=== PATIENT | male | born 1950 | race Caucasian/White ===

== ENCOUNTER 2021-11-06 21:02 | Observation (INO) | payer BC, MEDICARE ==
[~2021-11-06] VITALS: Ht 169 cm; Wt 98.4 kg
[2021-11-06] MEDS ORDERED: LOPERAMIDE 2 MG (IMODIUM) TABLET PO PRN (21:15)
[2021-11-06] MEDS ORDERED: BISACODYL 10 MG SUPP (DULCOLAX) PR PRN (21:15)
[2021-11-06] MEDS ORDERED: ENOXAPARIN 40 MG/0.4 ML (LOVENOX) SYR SC SCH (21:15)
[2021-11-06] MEDS ORDERED: HYDROcodone/APAP 5 MG/325 MG (LORTAB) TAB PO PRN (21:15)
[2021-11-06] MEDS ORDERED: ACETAMINOPHEN 325 MG TABLET PO PRN (21:15)
[2021-11-06] MEDS ORDERED: ONDANSETRON 4 MG/2 ML (SDV) Z0FRAN IV PRN (21:15)
[2021-11-06] MEDS ORDERED: NALOXONE 0.4 MG/ML 1 ML (NARCAN) VIAL IV PRN (21:15)
[2021-11-06] MEDS ORDERED: ALPRAZolam 0.25 MG (XANAX) TAB PO PRN (21:15)
[2021-11-06] MEDS ORDERED: CALCIUM CARBONATE 500 MG (TUMS) TAB.CHEW PO PRN (21:15)
[2021-11-06] MEDS ORDERED: diphenhydrAMINE 25 MG TAB (BENADRYL) PO PRN (21:15)
[2021-11-06] MEDS ORDERED: ONDANSETRON 4 MG (ZOFRAN) ORAL DISSOLVE TAB PO PRN (21:15)
[2021-11-06] MEDS ORDERED: ANTACID SUSP 30 ML UDC (MYLANTA) PO PRN (21:15)
[2021-11-06] MEDS ORDERED: polyethylene glycoL POWDER 17 GM (MIRALAX) PACK PO PRN (21:15)
[2021-11-06] MEDS ORDERED: NITROGLYCERIN 0.4 MG SL TABS BTL 25'S SL PRN (21:15)
[2021-11-06] MEDS ORDERED: MELATONIN 3 MG TABLET PO PRN (21:15)
[2021-11-06] MEDS ORDERED: MILK OF MAGNESIA 400 MG/5 ML 30 ML UDC PO PRN (21:15)
[2021-11-06] MEDS ORDERED: diphenhydrAMINE 50 MG/ML INJ (BENADRYL) IVP PRN (21:15)
[2021-11-06] MEDS ORDERED: morphine INJ 4 MG/ML 1 ML (VIAL/SYRINGE) IV PRN (21:15)
[2021-11-06] MEDS ORDERED: LACTULOSE SYRUP 10GM/15ML (ENULOSE) 30ML UDC PO PRN (21:15)
[2021-11-07] MEDS: inSUlin ASPART (NovoLOG) 1 UNIT/0.01 ML (CHARGE PER UNIT) SC SCH ×3 (06:00→17:40)
[2021-11-07] MEDS ORDERED: ASPIRIN E.C. 81 MG (ECOTRIN) TAB PO SCH (09:00)
[2021-11-07] MEDS ORDERED: SENNOSIDES 8.6 MG (SENOKOT) TAB PO SCH (09:00)
[2021-11-07] MEDS ORDERED: DOCUSATE SODIUM 100 MG (COLACE) CAP PO SCH (09:00)
[2021-11-07] MEDS ORDERED: meTOprolol TARTRATE 25 MG (LOPRESSOR) TABLET PO SCH (09:00)
[2021-11-07 10:00] VITALS: BP 143/82
[2021-11-07] MEDS: NS IV 1000 ML 1,000 ML IV SCH ×2 (10:20→12:40)
[2021-11-07 10:38] LABS: BASOPHILS # (AUTO) 0.1 10^3/uL (0.0-0.1); BASOPHILS % (AUTO) 1 % (0-10); EOSINOPHILS # (AUTO) 0.2 10^3/uL (0.0-0.3); EOSINOPHILS % (AUTO) 2 % (0-10); HEMATOCRIT 45 % (40-54); HEMOGLOBIN 14.6 g/dL (13.3-17.7); LYMPHOCYTES # (AUTO) 1.3 10^3/uL (1.0-4.0); LYMPHOCYTES % (AUTO) 16 % (12-44); MEAN CORPUSCULAR HEMOGLOBIN 27 pg (25-34); MEAN CORPUSCULAR HGB CONC 32 g/dL (32-36); MEAN CORPUSCULAR VOLUME 84 fL (80-99); MEAN PLATELET VOLUME 8.9 fL (9.0-12.2); MONOCYTES # (AUTO) 0.4 10^3/uL (0.0-1.0); MONOCYTES % (AUTO) 5 % (0-12); NEUTROPHILS # (AUTO) 6.2 10^3/uL (1.8-7.8); NEUTROPHILS % (AUTO) 76 % (42-75); PLATELET COUNT 307 10^3/uL (130-400); WHITE BLOOD COUNT 8.1 10^3/uL (4.3-11.0)
--- NOTE | 2021-11-07 11:02 | Consultation-Cardiology ---
HPI-Cardiology Cardiology Consultation Date of Consultation 11/07/21 Date of Admission Time Seen by Provider: 10:40 Indication: Chest pain HPI Patient is a 71 y/o male with history of HTN, HLP, questionable DM. Presented to the ER at [facility] with c/o intermittent chest pain, onset yesterday afternoon while driving home from work. Reports another episode that evening shortly after dinner, both lasting around 10-15 minutes. Denies any associated dyspnea, dizziness or lightheadedness. Upon interviewing him, he was having active chest pain. Stat EKG showed SR with no ST changes, pain was worse with movement of left arm/shoulder. Denies any hx of CAD. Denies F/C/NS. Covid and influenza negative, done at ER. Home Medications & Allergies Allergies: Coded Allergies: Penicillins (Verified Allergy, Unknown, 11/06/21) Home Medication List Reviewed: Yes LPR-Lyvspx-Jioxya Hx Patient Social History Marital Status: Employed/Student: employed, retired Smoking Status: Never a Smoker Past Medical History HTN, HLP, obesity Family Medical History Significant Family History: No Pertinent Family Hx Family Medical Hx Noncontributory, no known premature coronary artery disease Review of Systems-General Review of Systems Constitutional: see HPI; No fever, No malaise, No weakness EENTM: see HPI, no symptoms reported; No blurred vision, No double vision, No vision loss Respiratory: see HPI; No cough, No dyspnea on exertion, No orthopnea, No short of breath, No wheezing Cardiovascular: see HPI, chest pain; No edema, No Hx of Intervention, No palpitations, No syncope, No vascular heart diseas Gastrointestinal: no symptoms reported; No abdominal pain, No constipation Genitourinary: no symptoms reported Musculoskeletal: other (shoulder pain) Skin: no symptoms reported, see HPI Psychiatric/Neurological: No Symptoms Reported, See HPI Reviewed Test Results Reviewed Test Results Lab Laboratory Tests 11/07/21 10:10: White Blood Count 8.1, Red Blood Count 5.36, Hemoglobin 14.6, Hematocrit 45, Mean Corpuscular Volume 84, Mean Corpuscular Hemoglobin 27, Mean Corpuscular Hemoglobin Concent 32, Red Cell Distribution Width 15.2H, Platelet Count 307, Mean Platelet Volume 8.9L, Immature Granulocyte % (Auto) 0, Neutrophils (%) (Auto) 76H, Lymphocytes (%) (Auto) 16, Monocytes (%) (Auto) 5, Eosinophils (%) (Auto) 2, Basophils (%) (Auto) 1, Neutrophils # (Auto) 6.2, Lymphocytes # (Auto) 1.3, Monocytes # (Auto) 0.4, Eosinophils # (Auto) 0.2, Basophils # (Auto) 0.1, Immature Granulocyte # (Auto) 0.0 ECG Impression ECG Initial ECG Rhythm: Normal Sinus Physical Exam Physical Exam Vital Signs Vital Signs - First Documented 11/07/21 11/07/21 11/07/21 11/07/21 09:24 10:00 10:59 12:37 Temp 37.0 Pulse 75 Resp 18 B/P (MAP) 143/82 (102) Pulse Ox 95 O2 Delivery Room Air FiO2 21 Capillary Refill : Height, Weight, BMI Height: '" Weight: lbs. oz. kg; BMI Method: General Appearance: No Apparent Distress, WD/WN Eyes: Bilateral Eye Normal Inspection, Bilateral Eye PERRL, Bilateral Eye EOMI HEENT: PERRL/EOMI, TMs Normal, Normal ENT Inspection, Pharynx Normal, Moist Mucous Membranes Neck: Full Range of Motion, Normal Inspection, Non Tender, Supple, Carotid Bruit Respiratory: Chest Non Tender, Normal Breath Sounds, No Accessory Muscle Use, No Respiratory Distress Cardiovascular: Regular Rate, Rhythm, No Edema, No Gallop, No JVD, No Murmur, N ormal Peripheral Pulses Gastrointestinal: Normal Bowel Sounds, No Organomegaly, No Pulsatile Mass, Non Tender, Soft Back: Normal Inspection, No CVA Tenderness, No Vertebral Tenderness Extremity: Normal Capillary Refill, Normal Inspection, Normal Range of Motion, Non Tender, No Calf Tenderness, No Pedal Edema Neurologic/Psychiatric: Alert, Oriented x3, No Motor/Sensory Deficits, Normal Mood/Affect Skin: Normal Color, Warm/Dry Lymphatic: No Adenopathy A/P-Cardiology Admission Diagnosis Chest pain HTN HLP Obesity Assessment/Plan Chest pain, nonspecific etiology, worse with movement at this time. EKG showing SR with no acute EKG changes. Initial troponin done at [facility] negative. I will repeat trop, order CRP and echo. Has multiple risk factors for underlying CAD, planning for stress echo. HTN, mildly elevated, continue to monitor. HLP, maintained on lipitor as outpatient. I will evaluate lipid profile. DM, maintained on Metformin as outpatient. History of back surgery done last year. Obesity Thank you for allowing us to participate in the management of Mr. Healy. This is Padmini Motley PA-C, as a scribe for Dr. Laura. Patient was seen and evaluated with Padmini, I agree with the current scribed note, I interviewed the patient personally and performed physical examination Patient has been reporting chest pain for the past 24 hours, dull in nature occasional sharp left-sided chest pain not radiating. Lasting for 5 to 10 min utes then resolving. Had another episode this morning, transferred from [facility], EKG and cardiac enzymes did not show any acute abnormality. Patient has multiple risk factors for coronary artery disease, discussed the management plan recommended evaluating echo and a stress test Monitor blood pressure We discussed all his risk factors and modifying his risk factors. PADMINI VANESSA Nov 07, 2021 11:02 MERCEDES LAURA MD Nov 07, 2021 13:40
[2021-11-07 11:07] LABS: ALANINE AMINOTRANSFERASE 35 U/L (0-55); ALBUMIN 4.4 GM/DL (3.2-4.5); ALKALINE PHOSPHATASE 81 U/L (40-136); BUN/CREATININE RATIO 21; CALCIUM 9.3 MG/DL (8.5-10.1); CARBON DIOXIDE 19 MMOL/L (21-32); CHLORIDE 109 MMOL/L (98-107); CHOLESTEROL 150 MG/DL (< 200); CREATININE SERUM 1.07 MG/DL (0.60-1.30); GFR ESTIMATED 68; GLUCOSE 173 MG/DL (70-105); HDL CHOLESTEROL 32 MG/DL (40-60); POTASSIUM 3.8 MMOL/L (3.6-5.0); SODIUM 140 MMOL/L (135-145); TOTAL PROTEIN 7.1 GM/DL (6.4-8.2); TRIGLYCERIDES 228 MG/DL (<150); VLDL CHOLESTEROL 46 MG/DL (5-40)
[2021-11-07 12:00] VITALS: BP 137/80
[2021-11-07 12:37] VITALS: BP 137/80
[2021-11-07] MEDS ORDERED: RT-ALBUTEROL SULF 2.5 MG/3 ML PRE-MIX VIAL INH PRN (12:45)
[2021-11-07] MEDS ORDERED: PSYL0.4C2 PO (13:50)
[2021-11-07] MEDS ORDERED: MAGN400T39 PO (13:50)
[2021-11-07] MEDS ORDERED: PANT40TA52 PO (13:50)
[2021-11-07] MEDS ORDERED: METF-397 PO ×2 (13:50→15:09)
[2021-11-07] MEDS ORDERED: OMEG-109 PO (13:50)
[2021-11-07] MEDS ORDERED: FINA5TAB6 PO (13:50)
[2021-11-07] MEDS ORDERED: ASPI-1238 PO (13:50)
[2021-11-07] MEDS ORDERED: RUTI1TAB PO (13:50)
[2021-11-07] MEDS ORDERED: VITA1TAB17 PO (13:50)
[2021-11-07] MEDS ORDERED: ATOR20TA66 PO (13:50)
[2021-11-07] MEDS ORDERED: DOCU-26 PO (13:50)
[2021-11-07] MEDS ORDERED: CHOL400T PO (13:50)
[2021-11-07] MEDS ORDERED: VITA-272 PO (13:50)
[2021-11-07] MEDS ORDERED: CHLO-159 PO (13:50)
--- NOTE | 2021-11-07 13:52 | History & Physical ---
[facility] 11/07/211351: History of Present Illness History of Present Illness Reason for visit/HPI 71 y/o male with a PMH of HTN, HLD, and probably DM presents c/o chest pain. At around 1430 on 11/06/21, pt reports feeling a mild pain in his left chest while he was driving home from work, which resolved spontaneously. Later, at 1930, he experienced another pain in the same location, but this was much worse and prompted him to go to the ED in [place], [place]. The pain resolved on route to the ED, but he reports feeling some mild aching in the area overnight. Pt describes the pain as sharp in quality with a sudden onset. Moving his left arm seemed to reproduce the pain while it was active, but nothing made it better until it spontaneously resolved. He has never had a pain like this before. He reports that the staff at the ED did not believe the issue to be cardiac in nature after initial evaluation, but recommended transfer here for further workup Date of Admission Nov 07, 2021 at 09:09 Date Seen by a Provider: Nov 07, 2021 Time Seen by a Provider: 09:35 I consulted on this patient on 11/07/21 13:45 Attending Physician Adelina Barriga DO Admitting Physician No,Local Physician Consult Allergies and Home Medications Allergies Coded Allergies: Penicillins (Verified Allergy, Unknown, 11/06/21) Patient Home Medication List Home Medication List Reviewed: Yes Aspirin (Aspirin EC) 81 Mg Tablet.dr, 81 MG PO DAILY, (Reported) Entered as Reported by: CHERRIE SCHREIBER on 11/07/211349 Last Action: Reviewed Atorvastatin Calcium (Atorvastatin Calcium) 20 Mg Tablet, 20 MG PO DAILY, (Reported) Entered as Reported by: CHERRIE SCHREIBER on 11/07/211349 Last Action: Reviewed Chlorpheniramine Maleate (Chlortabs) 4 Mg Tablet, 4 MG PO DAILY, (Reported) Entered as Reported by: CHERRIE SCHREIBER on 11/07/211349 Last Action: Reviewed Cholecalciferol (Vitamin D3) (Vitamin D3) 10 Mcg Tablet, 10 MCG PO DAILY, (Reported) Entered as Reported by: CHERRIE SCHREIBER on 11/07/211349 Last Action: Reviewed Docusate Sodium (Stool Softener) 100 Mg Capsule, 100 MG PO BID, (Reported) Entered as Reported by: CHERRIE SCHREIBER on 11/07/211349 Last Action: Reviewed Finasteride (Finasteride) 5 Mg Tablet, 5 MG PO DAILY, (Reported) Entered as Reported by: CHERRIE SCHREIBER on 11/07/211349 Last Action: Reviewed Magnesium Oxide (Magnesium) 400 Mg Tablet, 400 MG PO DAILY, (Reported) Entered as Reported by: CHERRIE SCHREIBER on 11/07/211349 Last Action: Reviewed Metformin HCl (Metformin HCl) 500 Mg Tablet, 500 MG PO BID Prescribed by: MERCEDES LAURA on 11/07/21 [address] [place]-3 Fatty Acids/Fish Oil (Fish Oil 1,200 mg Softgel) 1 Each Capsule, 1 EACH PO BID, (Reported) Entered as Reported by: CHERRIE SCHREIBER on 11/07/211349 Last Action: Reviewed Pantoprazole Sodium (Pantoprazole Sodium) 40 Mg Tablet.dr, 40 MG PO DAILY, (Reported) Entered as Reported by: CHERRIE SCHREIBER on 11/07/211349 Last Action: Reviewed Psyllium Husk (Metamucil) 0.4 Gm Capsule, 2 GM PO 1200, (Reported) Entered as Reported by: CHERRIE SCHREIBER on 11/07/211349 Last Action: Reviewed Rutin/Hesp/Bioflav/C/Herb#196 (Bioflex Tablet) 1 Each Tablet, 2 EACH PO HS, (Reported) Entered as Reported by: CHERRIE SCHREIBER on 11/07/211349 Last Action: Reviewed Vitamin B Complex (Vitamin B Complex) 1 Each Tablet, 1 EACH PO HS, (Reported) Entered as Reported by: CHERRIE SCHREIBER on 11/07/211349 Last Action: Reviewed Vitamin E Mixed (Vitamin E) 400 Unit Capsule, 400 UNIT PO DAILY, (Reported) Entered as Reported by: CHERRIE CSHREIBER on 11/07/211349 Last Action: Reviewed Past Apxoyxs-Knvfuf-Oeryzk Hx Patient Social History Marrital Status: Employed/Student: employed, retired Tobacco Use?: No Smoking Status: Never a Smoker Smokeless Tobacco Frequency: Never a User Use of E-Cig and/or Vaping dev: No Substance use?: No Alcohol Use?: Yes Additional alcohol type: Carmencita Alcohol Frequency: Once in a while Pt feels they are or have been: No Immunizations Up To Date Tetanus Booster (TDap): Unknown Current Status Advance Directives: No Communicates: Verbally Primary Language: Swedish Preferred Spoken Language: Swedish Is interpretation needed?: No Sensory deficits: Vision impairment Implanted or Applied Medical D: Orthopedic hardware Past Medical History Surgeries: Abdominal (Hx of Hiatal Hernia repair), Gallbladder, Lumpectomy (removed from right breast; benign), Orthopedic (Spinal surgery; possible repair of spinal stenosis and rotator cuff repair), Transurethral Resection (TURP) Sleep Apnea Currently Using CPAP: Yes High Cholesterol, Hypertension Benign Prostatic Hyperpl (s/p TURP) Hiatal Hernia (s/p repair) Chronic Back Pain Diabetes, Non-Insulin dep Family Medical History No Pertinent Family Hx Review of Systems Constitutional: no symptoms reported EENTM: no symptoms reported Respiratory: no symptoms reported Cardiovascular: chest pain Gastrointestinal: no symptoms reported Genitourinary: no symptoms reported Musculoskeletal: no symptoms reported Skin: no symptoms reported Psychiatric/Neurological: No Symptoms Reported Physical Exam Vital Signs Vital Signs - First Documented 11/07/21 11/07/21 11/07/21 11/07/21 09:24 10:00 10:59 12:37 Temp 37.0 Pulse 75 Resp 18 B/P (MAP) 143/82 (102) Pulse Ox 95 O2 Delivery Room Air FiO2 21 Capillary Refill : Height, Weight, BMI Height: '" Weight: lbs. oz. kg; 34.45 BMI Method: General Appearance: No Apparent Distress, WD/WN, Obese Eyes: Bilateral Eye PERRL, Bilateral Eye EOMI HEENT: PERRL/EOMI Neck: Non Tender, Supple; No Carotid Bruit, No JVD Respiratory: Chest Non Tender, Lungs Clear, Normal Breath Sounds, No Accessory Muscle Use, No Respiratory Distress Cardiovascular: Regular Rate, Rhythm, No Edema, No Gallop, No JVD, No Murmur Gastrointestinal: Non Tender, Soft Rectal: Deferred Neurologic/Psychiatric: Alert, Oriented x3 Skin: Warm/Dry, Other (Hari facial skin) Assessment/Plan Assessment and Plan This is a 71 y/o male in no apparent distress who experienced the sudden onset of chest pain while eating yesterday evening Problems: (1) Chest pain Onset Date: ~ 11/06/2021 Status: Acute Qualifiers: Qualified Codes: R07.2 - Precordial pain Assessment & Plan: - JAZMIN score: 3; 13% all cause mortality risk - HEART score: 4; Risk of MACE 12-16.6% - extensive w/u primarily benign - unlikely cardiac in origin given clinical history, physical exam, labs, and imaging - needs stress test for ischemic w/u - cards consulted; appreciate further recs (2) Hypertension Status: Chronic Qualifiers: Qualified Codes: I10 - Essential (primary) hypertension Assessment & Plan: - Patient currently not on home medications for HTN - Start metoprolol - f/u OP (3) Hyperglycemia Status: Chronic Assessment & Plan: -A1c unknown. States that he has not been evaluated -Home regimen: Metformin 500mg -Inpatient regimen: Insulin Aspart SS -Glucose monitoring AC/HS (4) Hyperlipidemia Status: Chronic Qualifiers: Qualified Codes: E78.2 - Mixed hyperlipidemia Assessment & Plan: - Continue home Atorvastatin - f/u OP Admission Diagnosis Admission Status: Observation ADELINA BARRIGA DO 11/08/21 0548: History of Present Illness History of Present Illness Reason for visit/HPI CC: Chest pain HPI: 71 yr old WM who rarely sees a doctor. Pt presented to the hospital from [facility] with complaints of atypical chest pain. He does have risk factors for heart disease including: HTN, hyperlipidemia, sleep apnea, and diabetes. Dr. Laura was consulted and an echocardiogram was ordered. Troponins will be trended as well. Pt appears to be at high risk for heart disease. He still works at [employer] for the last 43 years. Pt is . Allergies and Home Medications Allergies Coded Allergies: Penicillins (Verified Allergy, Unknown, 11/06/21) Patient Home Medication List Home Medication List Reviewed: Yes Aspirin (Aspirin EC) 81 Mg Tablet., 81 MG PO DAILY, (Reported) Entered as Reported by: CHERRIE SCHREIBER on 11/07/21 135 Last Action: Reviewed Atorvastatin Calcium (Atorvastatin Calcium) 20 Mg Tablet, 20 MG PO DAILY, (Reported) Entered as Reported by: CHERRIE SCHREIBER on 11/07/211349 Last Action: Reviewed Chlorpheniramine Maleate (Chlortabs) 4 Mg Tablet, 4 MG PO DAILY, (Reported) Entered as Reported by: CHERRIE SCHREIBER on 11/07/211349 Last Action: Reviewed Cholecalciferol (Vitamin D3) (Vitamin D3) 10 Mcg Tablet, 10 MCG PO DAILY, (Reported) Entered as Reported by: CHERRIE SCHREIBER on 11/07/211349 Last Action: Reviewed Docusate Sodium (Stool Softener) 100 Mg Capsule, 100 MG PO BID, (Reported) Entered as Reported by: CHERRIE SCHREIBER on 11/07/211349 Last Action: Reviewed Finasteride (Finasteride) 5 Mg Tablet, 5 MG PO DAILY, (Reported) Entered as Reported by: CHERRIE SCHREIBER on 11/07/211349 Last Action: Reviewed Magnesium Oxide (Magnesium) 400 Mg Tablet, 400 MG PO DAILY, (Reported) Entered as Reported by: CHERRIE SCHREIBER on 11/07/211349 Last Action: Reviewed Metformin HCl (Metformin HCl) 500 Mg Tablet, 500 MG PO BID Prescribed by: MERCEDES LAURA on 11/07/21 [address] [place]-3 Fatty Acids/Fish Oil (Fish Oil 1,200 mg Softgel) 1 Each Capsule, 1 EACH PO BID, (Reported) Entered as Reported by: CHERRIE SCHREIBER on 11/07/211349 Last Action: Reviewed Pantoprazole Sodium (Pantoprazole Sodium) 40 Mg Tablet.dr, 40 MG PO DAILY, (Reported) Entered as Reported by: CHERRIE SCHREIBER on 11/07/211349 Last Action: Reviewed Psyllium Husk (Metamucil) 0.4 Gm Capsule, 2 GM PO 1200, (Reported) Entered as Reported by: CHERRIE SCHREIBER on 11/07/211349 Last Action: Reviewed Rutin/Hesp/Bioflav/C/Herb#196 (Bioflex Tablet) 1 Each Tablet, 2 EACH PO HS, (Reported) Entered as Reported by: CHERRIE SCHREIBER on 11/07/211349 Last Action: Reviewed Vitamin B Complex (Vitamin B Complex) 1 Each Tablet, 1 EACH PO HS, (Reported) Entered as Reported by: CHERRIE SCHREIBER on 11/07/211349 Last Action: Reviewed Vitamin E Mixed (Vitamin E) 400 Unit Capsule, 400 UNIT PO DAILY, (Reported) Entered as Reported by: CHERRIE SCHREIBER on 11/07/211349 Last Action: Reviewed Past Cecbqgu-Qftqtu-Ahcdew Hx Patient Social History Marrital Status: Employed/Student: employed Smoking Status: Unknown if Ever Smoked Past Medical History Sleep Apnea Currently Using CPAP: Yes High Cholesterol, Hypertension Benign Prostatic Hyperpl (s/p TURP) Review of Systems Constitutional: see HPI EENTM: no symptoms reported Respiratory: no symptoms reported Cardiovascular: chest pain Gastrointestinal: no symptoms reported Genitourinary: no symptoms reported Musculoskeletal: no symptoms reported Skin: no symptoms reported Psychiatric/Neurological: No Symptoms Reported All Other Systems Reviewed Negative Unless Noted: Yes Physical Exam General Appearance: No Apparent Distress, WD/WN, Chronically ill, Obese Eyes: Bilateral Eye Normal Inspection, Bilateral Eye PERRL, Bilateral Eye EOMI HEENT: PERRL/EOMI, Normal ENT Inspection, Pharynx Normal Neck: Full Range of Motion, Normal Inspection, Non Tender, Supple, Carotid Br uit Respiratory: Chest Non Tender, Lungs Clear, Normal Breath Sounds, No Accessory Muscle Use, No Respiratory Distress Cardiovascular: Regular Rate, Rhythm, No Edema, No Gallop, No JVD, No Murmur, Normal Peripheral Pulses Gastrointestinal: Normal Bowel Sounds, No Organomegaly, No Pulsatile Mass, Non Tender, Soft Back: Normal Inspection, No CVA Tenderness, No Vertebral Tenderness Extremity: Normal Capillary Refill, Normal Inspection, Normal Range of Motion, Non Tender, No Calf Tenderness, No Pedal Edema Neurologic/Psychiatric: Alert, Oriented x3, No Motor/Sensory Deficits, Normal Mood/Affect Skin: Normal Color, Warm/Dry Lymphatic: No Adenopathy Assessment/Plan Assessment and Plan Assessment: Chest pain suspicious for ACS Obesity JOSE DANIEL on CPAP HTN Plan: Cardiology consult Supervisory-Addendum Brief Verification & Attestation Participated in pt care: history, MDM, physical Personally performed: exam, history, MDM, supervision of care Care discussed with: Medical Student Procedures: n/a Results interpretation: Verified all documentation Verification and Attestation of Medical Student E/M Service A medical student performed and documented this service in my presence. I reviewed and verified all information documented by the medical student and made modifications to such information, when appropriate. I personally performed the physical exam and medical decision making. Adelina Barriga, Nov 08, 2021,05:46 [facility] [facility] Nov 07, 2021 13:52 ADELINA BARRIGA DO Nov 08, 2021 05:48
--- NOTE | 2021-11-07 14:26 | Conscious Sedation/ASA ---
Conscious Sedation Pre-Proced Time 14:26 ASA Score 3 For ASA 3 and 4: Consider anesthesia and medical clearance. Also, for patients with a history of failed moderate sedation consider anesthesia. Airway Lungs Heart ASA score ASA 1: a normal healthy patient ASA 2: a patient with a mild systemic disease (mid diabetes, controlled hypertension, obesity x ASA 3: a patient with a severe systemic disease that limits activity (angina, COPD, prior Myocardial infarction) ASA 4: a patient with an incapacitating disease that is a constant threat to life (CHF, renal failure) ASA 5: a moribund patient not expected to survive 24 hrs. (ruptured aneurysm) ASA 6: a declared brain- patient whose organs are being harvested. For emergent operations, add the letter E after the classification Mallampati Classification Grade 3 Sedation Plan Analgesia, Amnesia, Plan communicated to team members, Discussed options with patient/fam, Discussed risks with patient/fam The patient is an appropriate candidate to undergo the planned procedure, sedation, and anesthesia. The patient immediately re-assessed prior to indication. MERCEDES CARO MD Nov 07, 2021 14:26
[2021-11-07] MEDS ORDERED: NS IV 1000 ML 1,000 ML ONE (14:31)
[2021-11-07] MEDS ORDERED: HEParin (CATH LAB) 2,000 ML IV ONE (14:31)
[2021-11-07] MEDS ORDERED: LIDOCAINE 1% INJ 20 ML 20 ML VIAL ONE (14:31)
[2021-11-07] MEDS ORDERED: fentaNYL INJ 100 MCG/2 ML AMP ONE (14:32)
[2021-11-07] MEDS ORDERED: HEParin 1000 UNIT/ML (10ML VIAL) FOR BOLUS ONE (14:32)
[2021-11-07] MEDS ORDERED: MIDAZOLAM 5 MG/5 ML (VERSED) VIAL ONE (14:32)
[2021-11-07] MEDS ORDERED: VERAPAMIL 5 MG/2 ML (CALAN) VIAL IV ONE (14:32)
[2021-11-07] MEDS ORDERED: NITRO DRIP 25000 MCG/D5W 0 ML IV ONE (14:33)
--- NOTE | 2021-11-07 15:10 | Discharge Inst-Post CATH ---
Discharge Inst-CATH/EP Problems Reviewed?: Yes Post Cardiac Cath/EP D/C Inst Follow Up/Plan Hold Metformin for [address] Laura's office in 2 to 4 weeks <b>CARDIAC CATH/EP PROCEDURE DISCHARGE INSTRUCTIONS</b> ACTIVITY * Go Home directly and rest. * Limit activity of the leg (or wrist if it was used) for 7 days including aerobics, swimming, jogging, bicycling, etc. * Restrict stair-climbing for 7 days if possible, if not, climb up with your non-cath leg, then bring together on the same step. * Avoid lifting, pushing, pulling or excessive movement of the affected extremity for 7 days. * Customary sexual activity may be resumed after 2 days-use caution not to use a position that strains or causes pain to the affected extremity. * No driving for 24 hours. * NO SMOKING. * Avoid straining for bowel movements for 7 days. * Gentle walking on level ground is allowed. * Returning to work will depend on the type of procedure and the results. Your doctor will discuss this with you. CALL YOUR DOCTOR FOR ANY OF THE FOLLOWING: *If bleeding from the puncture site occurs- Apply gentle pressure to site with clean cloth and call your doctor or EMS. * If a knot or lump forms under the skin, increases in size, or causes pain. * If bruising appears to be worsening or moving further down your leg instead of disappearing. * Temperature above 101 F. CARE OF YOUR GROIN INCISION; * Bruising or purple discoloration of the skin near the puncture site is common. * You may shower only, no bathtub bathing for 5 days. Be careful to avoid slipping as your leg may feel stiff. * If a closure device was used on your femoral artery, please see the attached guide regarding care of the device and your leg. * Leave dressing on FOR 24 hours. CARE OF YOUR WRIST INCISION; * Bruising or purple discoloration of the skin near the puncture site is common. * You may shower. * DO NOT submerge wrist. * Leave dressing on FOR 24 hours. MERCEDES LAURA MD Nov 07, 2021 15:10
--- NOTE | 2021-11-07 15:14 | Cardiac Cath Report ---
Cardiac Cath Report Physician (s)/Student Services Dean (s) Physician MERCEDES CARO MD Pre-Procedure Diagnosis Pre-Procedure Diagnosis: Coronary artery disease Post-Procedure Note Procedure Start Date: Nov 07, 2021 Name of Procedure: Left heart catheterization Findings/Procedure Note PROCEDURE NOTE: 71 years old gentleman with history of diabetes mellitus, hyperlipidemia, admitted with chest pain, had borderline stress test, brought for cardiac catheterization possible PTCA. After explaining the procedure to the patient, all pros and cons were explained, all questions were answered. The patient signed the consent and then he was placed on the cardiac catheterization laboratory. Groin was prepped SL fashion local anesthesia was used. Sheath placed in the right femoral artery. Ha right and left catheter were used to access the coronary system. Ha right catheter was prolapsed to the left ventricular cavity, pressure was measured, no left ventriculogram was done. At the end of the procedure the sheath was removed. Closure device was deployed FINDINGS: Hemodynamics LV 131/14, end-diastolic pressure 14 Aorta 130/71 mean of 93 ANATOMY: Left Main is free of obstructive disease Left Anterior Descending is slightly tortuous with myocardial bridging, no significant obstructive disease Left Circumflex has mild disease nonobstructive disease Right Coronary Artery is dominant artery with no obstructive disease LV Gram was not done, pressure was measured CONCLUSION: 1. 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 Normal left ventricular end-diastolic pressure DISCUSSION AND RECOMMENDATION: Patient was reassured, chest pain is probably noncardiac Anesthesia Type: Conscious Sedation Estimated blood loss (mL): 10 ml Contrast Amount: 22 ml Total Radiation Dose: 775 mGy Post-Procedure Diagnosis Post-operative diagnosis: Chest pain Coronary artery disease Hypertension Hyperlipidemia MERCEDES CARO MD Nov 07, 2021 15:14
[2021-11-07] MEDS ORDERED: PATIENT MAY USE OWN MEDS, ALL PO SCH (15:15)
[2021-11-07] MEDS ORDERED: NS IV 1000 ML 1,000 ML IV SCH (15:15)
[2021-11-07 16:00] VITALS: BP 115/70
--- NOTE | 2021-11-07 20:55 | Discharge Summary ---
Diagnosis/Chief Complaint Date of Admission Nov 07, 2021 at 09:09 Date of Discharge Nov 07, 2021 at 19:30 Discharge Date: Nov 07, 2021 Discharge Time: 193 Discharge Diagnosis Chest pain suspicious for ACS but negative cardiac cath Discharge Summary Discharge Physical Examination Allergies: Coded Allergies: Penicillins (Verified Allergy, Unknown, 11/06/21) Vitals & I&Os Vital Signs Date Time Temp Pulse Resp B/P (MAP) Pulse Ox O2 Delivery O2 Flow Rate FiO2 11/07/21 19:30 11/07/21 16:00 36.3 73 18 92 Room Air 11/07/21 12:37 21 Hospital Course Was the Problem List Reviewed?: Yes Admitted for r/o ACS. Trop negative but multiple risk factors prompted Dr Laura to perform cath and that was negative so he was DC. Labs (last 24 hrs) Laboratory Tests 11/07/21 10:10: White Blood Count 8.1, Red Blood Count 5.36, Hemoglobin 14.6, Hematocrit 45, Mean Corpuscular Volume 84, Mean Corpuscular Hemoglobin 27, Mean Corpuscular Hemoglobin Concent 32, Red Cell Distribution Width 15.2H, Platelet Count 307, Mean Platelet Volume 8.9L, Immature Granulocyte % (Auto) 0, Neutrophils (%) (Auto) 76H, Lymphocytes (%) (Auto) 16, Monocytes (%) (Auto) 5, Eosinophils (%) (Auto) 2, Basophils (%) (Auto) 1, Neutrophils # (Auto) 6.2, Lymphocytes # (Auto) 1.3, Monocytes # (Auto) 0.4, Eosinophils # (Auto) 0.2, Basophils # (Auto) 0.1, Immature Granulocyte # (Auto) 0.0, Sodium Level 140, Potassium Level 3.8, Chloride Level 109H, Carbon Dioxide Level 19L, Anion Gap 12, Blood Urea Nitrogen 22H, Creatinine 1.07, Estimat Glomerular Filtration Rate 68, BUN/Creatinine Ratio 21, Glucose Level 173H, Calcium Level 9.3, Corrected Calcium 9.0, Total Bilirubin 1.0, Aspartate Amino Transf (AST/SGOT) 29, Alanine Aminotransferase (ALT/SGPT) 35, Alkaline Phosphatase 81, Troponin I < 0.028, Total Protein 7.1, Albumin 4.4, Triglycerides Level 228H, Cholesterol Level 150, LDL Cholesterol Direct 97, VLDL Cholesterol 46H, HDL Cholesterol 32L 11/07/21 10:48: C-Reactive Protein High Sensitivity 0.29 11/07/21 11:09: Glucometer 127H 11/07/21 17:17: Glucometer 87 Pending Labs Laboratory Tests 11/07/21 10:10: White Blood Count 8.1, Red Blood Count 5.36, Hemoglobin 14.6, Hematocrit 45, Mean Corpuscular Volume 84, Mean Corpuscular Hemoglobin 27, Mean Corpuscular Hemoglobin Concent 32, Red Cell Distribution Width 15.2, Platelet Count 307, Mean Platelet Volume 8.9, Immature Granulocyte % (Auto) 0, Neutrophils (%) (Auto) 76, Lymphocytes (%) (Auto) 16, Monocytes (%) (Auto) 5, Eosinophils (%) (Auto) 2, Basophils (%) (Auto) 1, Neutrophils # (Auto) 6.2, Lymphocytes # (Auto) 1.3, Monocytes # (Auto) 0.4, Eosinophils # (Auto) 0.2, Basophils # (Auto) 0.1, Immature Granulocyte # (Auto) 0.0, Sodium Level 140, Potassium Level 3.8, Chloride Level 109, Carbon Dioxide Level 19, Anion Gap 12, Blood Urea Nitrogen 22, Creatinine 1.07, Estimat Glomerular Filtration Rate 68, BUN/Creatinine Ratio 21, Glucose Level 173, Calcium Level 9.3, Corrected Calcium 9.0, Total Bilirubin 1.0, Aspartate Amino Transf (AST/SGOT) 29, Alanine Aminotransferase (ALT/SGPT) 35, Alkaline Phosphatase 81, Troponin I < 0.028, Total Protein 7.1, Albumin 4.4, Triglycerides Level 228, Cholesterol Level 150, LDL Cholesterol Direct 97, VLDL Cholesterol 46, HDL Cholesterol 32 11/07/21 10:48: C-Reactive Protein High Sensitivity 0.29 11/07/21 11:09: Glucometer 127 11/07/21 17:17: Glucometer 87 Discharge Home Medications: Active Scripts Active Metformin HCl 500 Mg Tablet 500 Mg PO BID Hold Metformin for 48 hours Reported Bioflex Tablet (Rutin/Hesp/Bioflav/C/Herb#196) 1 Each Tablet 2 Each PO HS Metamucil (Psyllium Husk) 0.4 Gm Capsule 2 Gm PO 1200 TAKES 5 (0.4GM) TABS Vitamin D3 (Cholecalciferol (Vitamin D3)) 10 Mcg Tablet 10 Mcg PO DAILY Aspirin EC (Aspirin) 81 Mg Tablet.dr 81 Mg PO DAILY Chlortabs (Chlorpheniramine Maleate) 4 Mg Tablet 4 Mg PO DAILY Vitamin E (Vitamin E Mixed) 400 Unit Capsule 400 Unit PO DAILY Vitamin B Complex 1 Each Tablet 1 Each PO HS Stool Softener (Docusate Sodium) 100 Mg Capsule 100 Mg PO BID Magnesium (Magnesium Oxide) 400 Mg Tablet 400 Mg PO DAILY Fish Oil 1,200 mg Softgel ([place]-3 Fatty Acids/Fish Oil) 1 Each Capsule 1 Each PO BID Atorvastatin Calcium 20 Mg Tablet 20 Mg PO DAILY Finasteride 5 Mg Tablet 5 Mg PO DAILY Pantoprazole Sodium 40 Mg Tablet.dr 40 Mg PO DAILY Instructions to patient/family Please see electronic discharge instructions given to patient. PAUL BARRIGA DO Nov 07, 2021 20:55
== END 2021-11-07 19:30 | disposition home or self-care (01) ==
LOC: 4TH 11-07 09:09 → CSD 11-07 15:15
PROVIDERS: ADMIT Internal Medicine; ATTEND Internal Medicine
DX: I25.10 Atherosclerotic heart disease of native coronary artery without angina pectoris (principal); I10 Essential (primary) hypertension; E11.9 Type 2 diabetes mellitus without complications; E78.5 Hyperlipidemia, unspecified; E78.00 Pure hypercholesterolemia, unspecified; K44.9 Diaphragmatic hernia without obstruction or gangrene; M54.9 Dorsalgia, unspecified; G47.30 Sleep apnea, unspecified; E11.65 Type 2 diabetes mellitus with hyperglycemia; G47.33 Obstructive sleep apnea (adult) (pediatric); E66.9 Obesity, unspecified; Z79.84 Long term (current) use of oral hypoglycemic drugs; Z79.82 Long term (current) use of aspirin; Z79.899 Other long term (current) drug therapy; Z99.89 Dependence on other enabling machines and devices
CPT/HCPCS: 36415; 80053; 80061; 82947; 84484; 85025; 86141; 93005; 93306; 93351; 93458; G0378